=== PATIENT | female | born 1945 ===

== ENCOUNTER 2017-01-03 13:44 | Emergency (ER) | payer MEDICARE, MEDICAID ==
[2017-01-03 13:57] VITALS: BMI 35.1
[2017-01-03 13:58] VITALS: BP 160/81; PULSE 92; RESP 18; TEMP 98.1; O2SAT 99
--- NOTE | 2017-01-03 14:37 | C.PDOC ---
History Of Present Illness 71 y/o F c PMHx R lumbar disc herniation s/p back surgery p/w L sided back pain radiating to L lower leg x months. Went to [facility] 12/04 for this same pain, discharged on tramadol. Went to [facility] 12/13 and had MRI which shows L sided disc hernation and no cord compression. Came here today for same pain, states needs pain control. Has appointment with PMD tomorrow and with her previous back surgeon next month. Denies fever, urinary or bowel changes, numbness, weakness, new trauma. Time Seen by Provider: 01/03/17 14:10 Chief Complaint (Nursing): Back Pain Past Medical History Vital Signs: Last Vital Signs Temp 98.1 F 01/03/17 13:57 Pulse 92 H 01/03/17 13:57 Resp 18 01/03/17 13:57 BP 160/81 H 01/03/17 13:57 Pulse Ox 99 01/03/17 15:07 - Medical History PMH: Bronchitis, Diabetes (type II), HTN, Osteoporosis, Pneumonia Denies: HIV, Chronic Kidney Disease Surgical History: Back Surgery (Lower Back), Endoscopy Family History: States: Unknown Family Hx - Social History Hx Tobacco Use: No Hx Alcohol Use: No Hx Substance Use: No - Immunization History Hx Tetanus Toxoid Vaccination: No Hx Influenza Vaccination: No Hx Pneumococcal Vaccination: No Review Of Systems Except As Marked, All Systems Reviewed And Found Negative. Constitutional: Negative for: Fever Cardiovascular: Negative for: Chest Pain Physical Exam - Physical Exam Appears: No Acute Distress Skin: No Rash Head: Atraumatic, Normacephalic Neck: No Midline Cervical Tenderness Cardiovascular: Rhythm Regular Respiratory: No Accessory Muscle Use Gastrointestinal/Abdominal: Soft, No Tenderness Back: No CVA Tenderness, No Vertebral Tenderness, Paraspinal Tenderness (L) Extremity: No Tenderness, No Swelling Neurological/Psych: Normal Speech, Normal Cognition ED Course And Treatment O2 Sat by Pulse Oximetry: 99 Disposition - Disposition Disposition: HOME/ ROUTINE Disposition Time: 15:06 Condition: STABLE Instructions: Lumbar Disc Herniation (ED) Forms: [facility] (Yi) - Clinical Impression Clinical Impression: Sciatica
== END 2017-01-03 15:19 | disposition home or self-care (01) ==
LOC: C.ER 13:44
DX: M54.32 Sciatica, left side (principal)
CPT/HCPCS: 96372; 99283; J2270

== ENCOUNTER 2017-06-15 11:18 | Emergency (ER) | payer MEDICARE, MEDICAID ==
[2017-06-15 11:18] VITALS: BMI 35.1
[2017-06-15 11:23] VITALS: BP 151/67; PULSE 108; RESP 20; TEMP 100.7
[2017-06-15 11:25] VITALS: O2SAT 94
--- NOTE | 2017-06-15 12:17 | C.PDOC ---
History Of Present Illness 71 yr old female presents to the ER for evaluation of fever, cough, congestion and generalized body aches for 1 day. Patient states she has been using OTC medication with no relief. Denies sore throat, chest pain, SOB, nausea, vomiting , abdominal pain, diarrhea, headache or dizziness. Time Seen by Provider: 06/15/17 11:50 Chief Complaint (Nursing): Flu-like Symptoms History Per: Patient History/Exam Limitations: no limitations Onset/Duration Of Symptoms: Days (1) Past Medical History Reviewed: Historical Data, Nursing Documentation, Vital Signs Vital Signs: Last Vital Signs Temp 100.7 F H 06/15/17 11:21 Pulse 108 H 06/15/17 11:21 Resp 20 06/15/17 11:21 BP 151/67 H 06/15/17 11:21 Pulse Ox 94 L 06/15/17 13:20 - Medical History PMH: Bronchitis, Diabetes (type II), HTN, Osteoporosis, Pneumonia Surgical History: Back Surgery (Lower Back), Endoscopy Family History: States: No Known Family Hx - Social History Hx Tobacco Use: No Hx Alcohol Use: No Hx Substance Use: No - Immunization History Hx Tetanus Toxoid Vaccination: No Hx Influenza Vaccination: No Hx Pneumococcal Vaccination: No Review Of Systems Constitutional: Positive for: Fever, Other (generalized body aches) Eyes: Negative for: Vision Change ENT: Positive for: Nose Congestion. Negative for: Ear Pain, Throat Pain Cardiovascular: Negative for: Chest Pain Respiratory: Positive for: Cough. Negative for: Shortness of Breath, Sputum Gastrointestinal: Negative for: Nausea, Vomiting, Abdominal Pain, Diarrhea Genitourinary: Negative for: Dysuria Skin: Negative for: Rash Neurological: Negative for: Headache, Dizziness Physical Exam - Physical Exam Appears: Non-toxic, No Acute Distress Skin: Warm, Dry, No Rash Head: Atraumatic, Normacephalic Eye(s): bilateral: Normal Inspection, PERRL, EOMI Ear(s): Bilateral: Normal Nose: Normal, No Flaring Oral Mucosa: Moist Throat: Normal, No Erythema, No Exudate, No Drooling Neck: Normal, Normal ROM, Supple Chest: Symmetrical Cardiovascular: Rhythm Regular, No Murmur Respiratory: Normal Breath Sounds, No Rales, No Rhonchi, No Stridor, No Wheezing , Other ((+) active coughing) Extremity: Normal ROM, No Deformity, No Swelling Neurological/Psych: Oriented x3, Normal Speech ED Course And Treatment O2 Sat by Pulse Oximetry: 94 (RA) Pulse Ox Interpretation: Normal - Other Rad CXR X-Ray: Viewed By Me, Read By Radiologist Interpretation: HISTORY: cough and fever. COMPARISON: Chest x-ray performed . TECHNIQUE: Chest PA and lateral. FINDINGS: Examination limited by habitus. LUNGS: No focal consolidation. Please note that chest x-ray has limited sensitivity for the detection of pulmonary masses. PLEURA: No significant pleural effusion identified. No definite pneumothorax . CARDIOVASCULAR: Cardiomegaly. Ectatic aorta. Dense atherosclerotic calcifications of the aortic knob. OSSEOUS STRUCTURES: Degenerative changes. VISUALIZED UPPER ABDOMEN: Unremarkable. OTHER FINDINGS: None. IMPRESSION: Cardiomegaly. Medical Decision Making Medical Decision Making: Patient with multi-symptom complaints. Based on history, exam and widespread influenza, will treat for the flu. Patient requested testing for flu. PLAN: * CXR * Influenza * Motrin PO CXR shows cardiomegaly no infiltrates. +Flu A Patient remained in no acute distress. Inform positive Flu test. Will give Rx for [place]. Patient advised on supportive treatment. Patient stable for discharge and instructed to follow up with PCP or clinic. Disposition Counseled Patient/Family Regarding: Diagnosis, Need For Followup, Rx Given - Disposition Referrals: Tevin Tapia, MAGED, HELIOTHERAPIST [Advanced Practice Nurse] - Disposition: HOME/ ROUTINE Disposition Time: 12:35 Condition: GOOD Additional Instructions: You have influenza, which is virus that can last 7-10 days. Take Tamiflu twice a day for 5 days to shorten the course. Take Tylenol or Motrin alternating every 4-6 hours for Fever 100.4F or higher. Rest and drink plenty of fluids. Follow up with your primary medical doctor or clinic in 1 week for further evaluation Prescriptions: Oseltamivir [Tamiflu] 75 mg PO BID #10 cap Instructions: Influenza (ED) Forms: [facility] (Lithuanian) - POA Present On Arrival: None - Clinical Impression Clinical Impression: Influenza - PA / ACOUSTICAL ENGINEER / Resident Statement MD/DO has reviewed & agrees with the documentation as recorded. - Scribe Statement The provider has reviewed the documentation as recorded by the Scribe Darlyn Hewitt All medical record entries made by the Scribe were at my direction and personally dictated by me. I have reviewed the chart and agree that the record accurately reflects my personal performance of the history, physical exam, medical decision making, and the department course for this patient. I have also personally directed, reviewed, and agree with the discharge instructions and disposition.
--- NOTE | 2017-06-15 12:30 | RAD ---
HISTORY: cough and fever COMPARISON: Chest x-ray performed 09/19/15 TECHNIQUE: Chest PA and lateral FINDINGS: Examination limited by habitus. LUNGS: No focal consolidation. Please note that chest x-ray has limited sensitivity for the detection of pulmonary masses. PLEURA: No significant pleural effusion identified. No definite pneumothorax . CARDIOVASCULAR: Cardiomegaly. Ectatic aorta. Dense atherosclerotic calcifications of the aortic knob. OSSEOUS STRUCTURES: Degenerative changes. VISUALIZED UPPER ABDOMEN: Unremarkable. OTHER FINDINGS: None. IMPRESSION: Cardiomegaly.
== END 2017-06-15 12:40 | disposition home or self-care (01) ==
LOC: C.ER 11:18
DX: J11.1 Influenza due to unidentified influenza virus with other respiratory manifestations (principal)